=== PATIENT | female | born 2000 | race Caucasian/White ===

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

== ENCOUNTER 2020-10-18 19:42 | Emergency (ER) | payer OTHER ==
[2020-10-18 21:16] VITALS: TEMP 98.6
[2020-10-18] MEDS ORDERED: SODIUM CHLORIDE 0.9% 1,000 ML IV STA (23:54)
[2020-10-18] MEDS ORDERED: ONDANSETRON 4 MG/2 ML VIAL IVP STA (23:54)
--- NOTE | 2020-10-18 23:57 | ED ---
Nausea/Vomiting/Diarrhea HPI - General Chief complaint: Nausea/Vomiting/Diarrhea Stated complaint: Nausea, SOB, weakness Time Seen by Provider: 10/18/20 23:34 Source: patient, RN notes reviewed Mode of arrival: ambulatory Limitations: no limitations - History of Present Illness Initial comments: Patient is a 20-year-old female that presents the emergency department complaining of abdominal pain with nausea vomiting and diarrhea. She notes that she tried going to bed early but was awoken by lower abdominal pain around 7:00 this evening. She noted that she became nauseous and vomited approximately 3 times. She stated that after this she's had several bouts of diarrhea and had an accident while waiting in the emergency room waiting room. She was in no apparent distress or pain while sitting up in bed during the exam interview. She noted that her pain was about a 3 out of 10 and that she did not need any medication at this point. She stated that the ideal eating made her more nauseous as she was about to attempt eat some crackers. She did note that she recently got a steroid shot and a prescription for Z-Ignacio and prednisone for primary care. She denied any chest pain shortness of breath headache constipation fever fatigue chills. - Related Data Home Medications Medication Instructions Recorded Confirmed Adapalene/Benzoyl Peroxide [Epiduo 1 applic TOPICAL DAILY 07/07/16 03/31/19 0.1-2.5% Gel] Atomoxetine HCl [Strattera] 40 mg PO QAM 07/07/16 03/31/19 Clindamycin Gel [Cleocin-T Gel] 1 applic TOPICAL DAILY 07/07/16 03/31/19 Glytone Acne [place] 1 spray TOPICAL DAILY 07/07/16 03/31/19 Loratadine [Claritin] 10 mg PO QAM 07/07/16 03/31/19 Metaxalone [Metaxall] 800 mg PO DAILY PRN 07/07/16 03/31/19 Montelukast [Singulair] 10 mg PO HS 07/07/16 03/31/19 Plexion Wash 1 applic TOPICAL DAILY 07/07/16 03/31/19 cloNIDine HCL [Catapres] 0.1 mg PO HS 07/07/16 03/31/19 Albuterol Inhaler (Mhu) [Ventolin 2 puff INHALATION RT-Q6H PRN 03/31/19 03/31/19 Hfa Inhaler] Blisovi Fe 1 tab PO DAILY 03/31/19 03/31/19 Fluticasone Nasal [place] [Flonase 1 spray EA NOSTRIL DAILY PRN 03/31/19 03/31/19 Nasal [place]] Fluticasone/Vilanterol [Breo 1 puff INHALATION RT-DAILY 03/31/19 03/31/19 Ellipta 100-25 Mcg Inhaler] Previous Rx's Medication Instructions Recorded Ondansetron Odt [Zofran ODT] 4 mg PO Q8HR PRN #10 tab 08/23/19 Allergies Allergy/AdvReac Type Severity Reaction Status Date / Time Penicillins Allergy Unknown Verified 10/18/20 21:16 Childhood Review of Systems ROS Statement: Those systems with pertinent positive or pertinent negative responses have been documented in the HPI. ROS Other: All systems not noted in ROS Statement are negative. Past Medical History Past Medical History: No Reported History Additional Past Medical History / Comment(s): SESONAL ALLERGIES, cerebral atoxia at History of Any Multi-Drug Resistant Organisms: None Reported Past Surgical History: No Surgical Hx Reported Past Psychological History: ADD/ADHD, Anxiety Smoking Status: Never smoker Past Alcohol Use History: Occasional Past Drug Use History: Marijuana General Exam Limitations: no limitations General appearance: alert, in no apparent distress Head exam: Present: atraumatic, normocephalic, normal inspection Eye exam: Present: normal appearance, PERRL, EOMI. Absent: scleral icterus, con junctival injection, periorbital swelling Neck exam: Present: normal inspection. Absent: tenderness, meningismus, lymphadenopathy Respiratory exam: Present: normal lung sounds bilaterally. Absent: respiratory distress, wheezes, rales, rhonchi, stridor Cardiovascular Exam: Present: regular rate, normal rhythm, normal heart sounds. Absent: systolic murmur, diastolic murmur, rubs, gallop, clicks GI/Abdominal exam: Present: soft, tenderness (Left lower quadrant), normal bowel sounds. Absent: distended, guarding, rebound, rigid Extremities exam: Present: normal inspection, full ROM, normal capillary refill. Absent: tenderness, pedal edema, joint swelling, calf tenderness Neurological exam: Present: alert, oriented X3, CN II-XII intact Psychiatric exam: Present: normal affect, normal mood Skin exam: Present: warm, dry, intact, normal color. Absent: rash Course Vital Signs 10/18/20 21:12 Temperature 98.6 F Pulse Rate 106 H Respiratory 20 Rate Blood Pressure 116/69 O2 Sat by Pulse 99 Oximetry Medical Decision Making - Medical Decision Making 20-year-old female with acute onset of nausea vomiting and diarrhea since 7 PM on 10/18/2020. Labs, KUB, chest x-ray, 1 L normal saline, 4 mg of Zofran ordered. Labs unremarkable. KUB showed moderate stool, possible ileus or enteritis. Case discussed with Dr. Grant, , patient can discharge home with follow-up to primary care. - Lab Data Result diagrams: 10/19/20 00:17 10/19/20 00:17 Lab Results 10/19/20 10/19/20 10/19/20 Range/Units 00:17 00:17 00:31 WBC 3.8 L (4.0-11.0) k/uL RBC 5.17 (3.80-5.40) m/uL Hgb 16.4 H (11.4-16.0) gm/dL Hct 46.7 H (34.0-46.0) % MCV 90.4 (80.0-100.0) fL MCH 31.7 (25.0-35.0) pg MCHC 35.1 (31.0-37.0) g/dL RDW 11.4 L (11.5-15.5) % Plt Count 221 (150-450) k/uL MPV 7.5 Neutrophils % 83 % Lymphocytes % 13 % Monocytes % 2 % Eosinophils % 1 % Basophils % 0 % Neutrophils # 3.1 (1.3-7.7) k/uL Lymphocytes # 0.5 L (1.0-4.8) k/uL Monocytes # 0.1 (0-1.0) k/uL Eosinophils # 0.0 (0-0.7) k/uL Basophils # 0.0 (0-0.2) k/uL Sodium 138 (137-145) mmol/L Potassium 5.0 (3.5-5.1) mmol/L Chloride 104 (98-107) mmol/L Carbon Dioxide 22 (22-30) mmol/L Anion Gap 12 mmol/L BUN 12 (7-17) mg/dL Creatinine 0.64 (0.52-1.04) mg/dL Est GFR (CKD-EPI)AfAm >90 (>60 ml/min/1.73 sqM) Est GFR (CKD-EPI)NonAf >90 (>60 ml/min/1.73 sqM) Glucose 121 H (74-99) mg/dL Calcium 9.8 (8.4-10.2) mg/dL Total Bilirubin 0.3 (0.2-1.3) mg/dL AST 25 (14-36) U/L ALT 21 (4-34) U/L Alkaline Phosphatase 68 (38-126) U/L Total Protein 8.3 H (6.3-8.2) g/dL Albumin 5.2 H (3.5-5.0) g/dL Urine Color Yellow Urine Appearance Clear (Clear) Urine pH 5.5 (5.0-8.0) Ur Specific [place] 1.031 (1.001-1.035) Urine Protein Trace H (Negative) Urine Glucose (UA) Negative (Negative) Urine Ketones Trace H (Negative) Urine Blood Negative (Negative) Urine Nitrite Negative (Negative) Urine Bilirubin Negative (Negative) Urine Urobilinogen <2.0 (<2.0) mg/dL Ur Leukocyte Esterase Negative (Negative) Urine HCG, Qual (Not Detectd) 10/19/20 Range/Units 00:31 WBC (4.0-11.0) k/uL RBC (3.80-5.40) m/uL Hgb (11.4-16.0) gm/dL Hct (34.0-46.0) % MCV (80.0-100.0) fL MCH (25.0-35.0) pg MCHC (31.0-37.0) g/dL RDW (11.5-15.5) % Plt Count (150-450) k/uL MPV Neutrophils % % Lymphocytes % % Monocytes % % Eosinophils % % Basophils % % Neutrophils # (1.3-7.7) k/uL Lymphocytes # (1.0-4.8) k/uL Monocytes # (0-1.0) k/uL Eosinophils # (0-0.7) k/uL Basophils # (0-0.2) k/uL Sodium (137-145) mmol/L Potassium (3.5-5.1) mmol/L Chloride (98-107) mmol/L Carbon Dioxide (22-30) mmol/L Anion Gap mmol/L BUN (7-17) mg/dL Creatinine (0.52-1.04) mg/dL Est GFR (CKD-EPI)AfAm (>60 ml/min/1.73 sqM) Est GFR (CKD-EPI)NonAf (>60 ml/min/1.73 sqM) Glucose (74-99) mg/dL Calcium (8.4-10.2) mg/dL Total Bilirubin (0.2-1.3) mg/dL AST (14-36) U/L ALT (4-34) U/L Alkaline Phosphatase (38-126) U/L Total Protein (6.3-8.2) g/dL Albumin (3.5-5.0) g/dL Urine Color Urine Appearance (Clear) Urine pH (5.0-8.0) Ur Specific [place] (1.001-1.035) Urine Protein (Negative) Urine Glucose (UA) (Negative) Urine Ketones (Negative) Urine Blood (Negative) Urine Nitrite (Negative) Urine Bilirubin (Negative) Urine Urobilinogen (<2.0) mg/dL Ur Leukocyte Esterase (Negative) Urine HCG, Qual Not Detected (Not Detectd) - Radiology Data Radiology results: report reviewed, image reviewed KUB: Several air-fluid levels, can be seen with enteritis or ileus. Chest x-ray: Mild. Bronchial thickening. No consolidation. Disposition Clinical Impression: Enteritis Disposition: HOME SELF-CARE Condition: Stable Instructions (If sedation given, give patient instructions): Acute Nausea and Vomiting (ED), Acute Diarrhea (ED) Additional Instructions: Please return to the Emergency Department if symptoms worsen or any other concerns. Increase fiber in diet. Follow-up with primary care in 2-4 days. Please return if symptoms get worse when he noticed increased abdominal pain nausea vomiting or diarrhea. Increase oral fluids. Is patient prescribed a controlled substance at d/c from ED?: No Referrals: Magaly Last DO [Primary Care Provider] - 1-2 days Time of Disposition: 01:39
[2020-10-19 00:27] LABS: Basophils % (A) 0 %; Eosinophils % (A) 1 %; HCT 46.7 % (34.0-46.0); HGB 16.4 gm/dL (11.4-16.0); Lymphocytes # (A) 0.5 k/uL (1.0-4.8); Lymphocytes % (A) 13 %; MCH 31.7 pg (25.0-35.0); MCHC 35.1 g/dL (31.0-37.0); MCV 90.4 fL (80.0-100.0); Mean Platelet Volume 7.5; Monocytes # (A) 0.1 k/uL (0-1.0); Monocytes % (A) 2 %; Neutrophils # (A) 3.1 k/uL (1.3-7.7); Neutrophils % (A) 83 %; Platelet Count 221 k/uL (150-450); RBC 5.17 m/uL (3.80-5.40); RDW 11.4 % (11.5-15.5); WBC 3.8 k/uL (4.0-11.0)
[2020-10-19 00:39] LABS: ALT 21 U/L (4-34); AST 25 U/L (14-36); African American GFR (CKD) >90 (>60 ml/min/1.73 sqM); Albumin 5.2 g/dL (3.5-5.0); Alkaline Phosphatase 68 U/L (38-126); Anion Gap 12 mmol/L; Blood Urea Nitrogen 12 mg/dL (7-17); Calcium 9.8 mg/dL (8.4-10.2); Carbon Dioxide 22 mmol/L (22-30); Chloride 104 mmol/L (98-107); Glucose 121 mg/dL (74-99); Non-African American GFR(CKD) >90 (>60 ml/min/1.73 sqM); Sodium 138 mmol/L (137-145); Total Bilirubin 0.3 mg/dL (0.2-1.3)
[2020-10-19 00:43] LABS: Appearance,Urine Clear (Clear); Bilirubin,Urine Negative (Negative); Blood,Urine Negative (Negative); Color,Urine Yellow; Glucose,Urine (UA) Negative (Negative); Ketones,Urine Trace (Negative); Leukocyte Esterase,Urine Negative (Negative); Nitrite,Urine Negative (Negative); PH, Urine 5.5 (5.0-8.0); Protein,Urine Trace (Negative); Specific Gravity,Urine 1.031 (1.001-1.035); Urobilinogen,Urine <2.0 mg/dL (<2.0)
[2020-10-19 00:55] LABS: Total Protein 8.3 g/dL (6.3-8.2)
--- NOTE | 2020-10-19 01:15 | XR ---
EXAM: XR Chest, 2 Views CLINICAL HISTORY: ITS.REASON XR Reason: pain TECHNIQUE: Frontal and lateral views of the chest. COMPARISON: No relevant prior studies available. FINDINGS: Lungs: Mild peribronchial thickening. No consolidation. Pleural space: No significant pleural effusion or pneumothorax. Heart: Unremarkable. Mediastinum: Unremarkable. Bones/joints: No acute fracture. IMPRESSION: Mild peribronchial thickening. No consolidation.
--- NOTE | 2020-10-19 01:17 | XR ---
EXAM: XR Abdomen, 1 View CLINICAL HISTORY: ITS.REASON XR Reason: pain TECHNIQUE: Frontal supine view of the abdomen/pelvis. COMPARISON: 07/07/16. FINDINGS: Gastrointestinal tract: Several air-fluid levels, can be seen with enteritis or ileus. Mild-moderate stool. Bones/joints: No acute fracture. IMPRESSION: Several air-fluid levels, can be seen with enteritis or ileus.
[2020-10-19 01:52] VITALS: BP 104/69; PULSE 78; RESP 18
== END 2020-10-19 01:51 | disposition home or self-care (01) ==
LOC: EC 19:42
DX: K52.9 Noninfective gastroenteritis and colitis, unspecified (principal); F41.9 Anxiety disorder, unspecified; Z88.0 Allergy status to penicillin
CPT/HCPCS: 36415; 80053; 85025; 81003; 81025; 71046; 74018; 99285; 96374; 96361 ×2; J2405

== ENCOUNTER 2021-03-04 00:48 | Emergency (ER) | payer OTHER ==
[2021-03-04 00:57] VITALS: TEMP 98.7
[2021-03-04] MEDS ORDERED: ONDANSETRON 4 MG/2 ML VIAL IVP STA (01:17)
[2021-03-04] MEDS ORDERED: SODIUM CHLORIDE 0.9% 1,000 ML IV ONE (01:17)
--- NOTE | 2021-03-04 01:48 | ED ---
Nausea/Vomiting/Diarrhea HPI - General Chief complaint: Nausea/Vomiting/Diarrhea Stated complaint: Vomiting Time Seen by Provider: 03/04/21 00:57 Source: patient, family Mode of arrival: ambulatory Limitations: no limitations - History of Present Illness MD complaint: nausea, vomiting Onset/Timin -: days(s) Description of Vomiting: food contents Location: [facility] Radiation: none Severity: moderate Quality: stabbing Consistency: intermittent Improves with: none Worsens with: none Associated Symptoms: nausea/vomiting - Related Data Home Medications Medication Instructions Recorded Confirmed Adapalene/Benzoyl Peroxide [Epiduo 1 applic TOPICAL DAILY 07/07/16 03/31/19 0.1-2.5% Gel] Atomoxetine HCl [Strattera] 40 mg PO QAM 07/07/16 03/31/19 Clindamycin Gel [Cleocin-T Gel] 1 applic TOPICAL DAILY 07/07/16 03/31/19 Glytone Acne [place] 1 spray TOPICAL DAILY 07/07/16 03/31/19 Loratadine [Claritin] 10 mg PO QAM 07/07/16 03/31/19 Metaxalone [Metaxall] 800 mg PO DAILY PRN 07/07/16 03/31/19 Montelukast [Singulair] 10 mg PO HS 07/07/16 03/31/19 Plexion Wash 1 applic TOPICAL DAILY 07/07/16 03/31/19 cloNIDine HCL [Catapres] 0.1 mg PO HS 07/07/16 03/31/19 Albuterol Inhaler (Mhu) [Ventolin 2 puff INHALATION RT-Q6H PRN 03/31/19 03/31/19 Hfa Inhaler] Blisovi Fe 1 tab PO DAILY 03/31/19 03/31/19 Fluticasone Nasal [place] [Flonase 1 spray EA NOSTRIL DAILY PRN 03/31/19 03/31/19 Nasal [place]] Fluticasone/Vilanterol [Breo 1 puff INHALATION RT-DAILY 03/31/19 03/31/19 Ellipta 100-25 Mcg Inhaler] Previous Rx's Medication Instructions Recorded Ondansetron Odt [Zofran ODT] 4 mg PO Q8HR PRN #10 tab 08/23/19 Allergies Allergy/AdvReac Type Severity Reaction Status Date / Time Penicillins Allergy Unknown Verified 03/04/21 00:56 Childhood Review of Systems ROS Statement: Those systems with pertinent positive or pertinent negative responses have been documented in the HPI. ROS Other: All systems not noted in ROS Statement are negative. Constitutional: Denies: fever, chills Respiratory: Denies: cough, dyspnea Cardiovascular: Denies: chest pain, palpitations Gastrointestinal: Reports: abdominal pain, nausea, vomiting, diarrhea. Denies: constipation, melena, hematochezia Genitourinary: Denies: dysuria, frequency, hematuria, abnormal menses Musculoskeletal: Denies: back pain Skin: Denies: rash Neurological: Denies: headache, weakness Past Medical History Past Medical History: Asthma Additional Past Medical History / Comment(s): SESONAL ALLERGIES, cerebral atoxia at History of Any Multi-Drug Resistant Organisms: None Reported Past Surgical History: No Surgical Hx Reported Past Psychological History: ADD/ADHD, Anxiety Smoking Status: Never smoker Past Alcohol Use History: Occasional Past Drug Use History: Marijuana General Exam Limitations: no limitations General appearance: alert, in no apparent distress Head exam: Present: atraumatic, normocephalic Eye exam: Present: normal appearance. Absent: scleral icterus, conjunctival injection Respiratory exam: Present: normal lung sounds bilaterally. Absent: respiratory distress, wheezes, rales, rhonchi, stridor Cardiovascular Exam: Present: regular rate, normal rhythm, normal heart sounds. Absent: systolic murmur, diastolic murmur, rubs, gallop GI/Abdominal exam: Present: soft, normal bowel sounds. Absent: distended, tenderness, guarding, rebound, rigid, mass, pulsatile mass, hernia Extremities exam: Present: normal inspection, normal capillary refill Back exam: Present: normal inspection. Absent: CVA tenderness (R), CVA tenderness (L) Neurological exam: Present: alert Skin exam: Present: warm, dry, intact, normal color. Absent: rash Course Vital Signs 03/04/21 03/04/21 00:52 01:56 Temperature 98.7 F Pulse Rate 106 H 98 Respiratory 20 18 Rate Blood Pressure 89/50 106/72 O2 Sat by Pulse 97 98 Oximetry Medical Decision Making - Lab Data Result diagrams: 03/04/21 01:36 03/04/21 01:36 Lab Results 03/04/21 03/04/21 03/04/21 Range/Units 01:36 01:36 01:36 WBC 5.9 (4.0-11.0) k/uL RBC 5.30 (3.80-5.40) m/uL Hgb 16.7 H (11.4-16.0) gm/dL Hct 47.6 H (34.0-46.0) % MCV 89.9 (80.0-100.0) fL MCH 31.5 (25.0-35.0) pg MCHC 35.0 (31.0-37.0) g/dL RDW 11.7 (11.5-15.5) % Plt Count 219 (150-450) k/uL MPV 7.6 Neutrophils % 55 % Lymphocytes % 32 % Monocytes % 6 % Eosinophils % 2 % Basophils % 1 % Neutrophils # 3.3 (1.3-7.7) k/uL Lymphocytes # 1.9 (1.0-4.8) k/uL Monocytes # 0.4 (0-1.0) k/uL Eosinophils # 0.1 (0-0.7) k/uL Basophils # 0.1 (0-0.2) k/uL Sodium (137-145) mmol/L Potassium (3.5-5.1) mmol/L Chloride (98-107) mmol/L Carbon Dioxide (22-30) mmol/L Anion Gap mmol/L BUN (7-17) mg/dL Creatinine (0.52-1.04) mg/dL Est GFR (CKD-EPI)AfAm (>60 ml/min/1.73 sqM) Est GFR (CKD-EPI)NonAf (>60 ml/min/1.73 sqM) Glucose (74-99) mg/dL Calcium (8.4-10.2) mg/dL Urine Color Yellow Urine Appearance Clear (Clear) Urine pH 5.5 (5.0-8.0) Ur Specific [place] 1.030 (1.001-1.035) Urine Protein Trace H (Negative) Urine Glucose (UA) Negative (Negative) Urine Ketones Negative (Negative) Urine Blood Negative (Negative) Urine Nitrite Negative (Negative) Urine Bilirubin Negative (Negative) Urine Urobilinogen <2.0 (<2.0) mg/dL Ur Leukocyte Esterase Negative (Negative) Urine HCG, Qual Not Detected (Not Detectd) 03/04/21 Range/Units 01:36 WBC (4.0-11.0) k/uL RBC (3.80-5.40) m/uL Hgb (11.4-16.0) gm/dL Hct (34.0-46.0) % MCV (80.0-100.0) fL MCH (25.0-35.0) pg MCHC (31.0-37.0) g/dL RDW (11.5-15.5) % Plt Count (150-450) k/uL MPV Neutrophils % % Lymphocytes % % Monocytes % % Eosinophils % % Basophils % % Neutrophils # (1.3-7.7) k/uL Lymphocytes # (1.0-4.8) k/uL Monocytes # (0-1.0) k/uL Eosinophils # (0-0.7) k/uL Basophils # (0-0.2) k/uL Sodium 139 (137-145) mmol/L Potassium 4.1 (3.5-5.1) mmol/L Chloride 106 (98-107) mmol/L Carbon Dioxide 18 L (22-30) mmol/L Anion Gap 15 mmol/L BUN 16 (7-17) mg/dL Creatinine 0.59 (0.52-1.04) mg/dL Est GFR (CKD-EPI)AfAm >90 (>60 ml/min/1.73 sqM) Est GFR (CKD-EPI)NonAf >90 (>60 ml/min/1.73 sqM) Glucose 100 H (74-99) mg/dL Calcium 9.4 (8.4-10.2) mg/dL Urine Color Urine Appearance (Clear) Urine pH (5.0-8.0) Ur Specific [place] (1.001-1.035) Urine Protein (Negative) Urine Glucose (UA) (Negative) Urine Ketones (Negative) Urine Blood (Negative) Urine Nitrite (Negative) Urine Bilirubin (Negative) Urine Urobilinogen (<2.0) mg/dL Ur Leukocyte Esterase (Negative) Urine HCG, Qual (Not Detectd) Disposition Clinical Impression: Gastroenteritis Disposition: HOME SELF-CARE Condition: Good Instructions (If sedation given, give patient instructions): Gastroenteritis (ED) Is patient prescribed a controlled substance at d/c from ED?: No Referrals: ShalaMagaly baldwin DO [Primary Care Provider] - 1-2 days
[2021-03-04 01:49] LABS: Basophils # (A) 0.1 k/uL (0-0.2); Basophils % (A) 1 %; Eosinophils # (A) 0.1 k/uL (0-0.7); Eosinophils % (A) 2 %; HCT 47.6 % (34.0-46.0); HGB 16.7 gm/dL (11.4-16.0); Lymphocytes # (A) 1.9 k/uL (1.0-4.8); Lymphocytes % (A) 32 %; MCH 31.5 pg (25.0-35.0); MCV 89.9 fL (80.0-100.0); Mean Platelet Volume 7.6; Monocytes # (A) 0.4 k/uL (0-1.0); Monocytes % (A) 6 %; Neutrophils # (A) 3.3 k/uL (1.3-7.7); Neutrophils % (A) 55 %; Platelet Count 219 k/uL (150-450); RDW 11.7 % (11.5-15.5); WBC 5.9 k/uL (4.0-11.0)
[2021-03-04] MEDS ORDERED: DICYCLOMINE 20 MG TAB PO STA (02:19)
[2021-03-04 02:23] LABS: Appearance,Urine Clear (Clear); Bilirubin,Urine Negative (Negative); Blood,Urine Negative (Negative); Color,Urine Yellow; Glucose,Urine (UA) Negative (Negative); Ketones,Urine Negative (Negative); Leukocyte Esterase,Urine Negative (Negative); Nitrite,Urine Negative (Negative); PH, Urine 5.5 (5.0-8.0); Protein,Urine Trace (Negative); Urobilinogen,Urine <2.0 mg/dL (<2.0)
[2021-03-04 02:25] LABS: African American GFR (CKD) >90 (>60 ml/min/1.73 sqM); Anion Gap 15 mmol/L; Blood Urea Nitrogen 16 mg/dL (7-17); Calcium 9.4 mg/dL (8.4-10.2); Carbon Dioxide 18 mmol/L (22-30); Chloride 106 mmol/L (98-107); Glucose 100 mg/dL (74-99); Non-African American GFR(CKD) >90 (>60 ml/min/1.73 sqM); Sodium 139 mmol/L (137-145)
[2021-03-04 02:31] LABS: Potassium 4.1 mmol/L (3.5-5.1)
[2021-03-04 02:44] VITALS: RESP 18
[2021-03-04 03:02] VITALS: BP 110/79; PULSE 101
== END 2021-03-04 03:02 | disposition home or self-care (01) ==
LOC: EC 00:48
DX: K52.9 Noninfective gastroenteritis and colitis, unspecified (principal); J45.909 Unspecified asthma, uncomplicated; F90.9 Attention-deficit hyperactivity disorder, unspecified type; F41.9 Anxiety disorder, unspecified; F12.90 Cannabis use, unspecified, uncomplicated; Z88.0 Allergy status to penicillin
CPT/HCPCS: 99284; 96374; 36415; 80048; 85025; 81003; 81025; J2405

== ENCOUNTER 2021-05-13 00:02 | Emergency (ER) | payer OTHER ==
[2021-05-13 00:55] LABS: Appearance,Urine Clear (Clear); Bilirubin,Urine Negative (Negative); Blood,Urine Negative (Negative); Color,Urine Yellow; Glucose,Urine (UA) Negative (Negative); Ketones,Urine Negative (Negative); Leukocyte Esterase,Urine Negative (Negative); Nitrite,Urine Negative (Negative); PH, Urine 5.5 (5.0-8.0); Protein,Urine Negative (Negative); Specific Gravity,Urine 1.026 (1.001-1.035); Urobilinogen,Urine <2.0 mg/dL (<2.0)
[2021-05-13] MEDS ORDERED: KETOROLAC 15 MG/ML 1 ML VIAL IVP STA (01:47)
[2021-05-13 02:18] LABS: Basophils # (A) 0.1 k/uL (0-0.2); Basophils % (A) 0 %; Eosinophils # (A) 0.3 k/uL (0-0.7); Eosinophils % (A) 2 %; HCT 46.5 % (34.0-46.0); HGB 16.3 gm/dL (11.4-16.0); Lymphocytes % (A) 14 %; MCH 31.2 pg (25.0-35.0); MCV 89.2 fL (80.0-100.0); Mean Platelet Volume 7.5; Monocytes # (A) 0.5 k/uL (0-1.0); Monocytes % (A) 3 %; Neutrophils # (A) 11.4 k/uL (1.3-7.7); Neutrophils % (A) 80 %; Platelet Count 300 k/uL (150-450); RBC 5.21 m/uL (3.80-5.40); RDW 12.5 % (11.5-15.5); WBC 14.3 k/uL (3.8-10.6)
[2021-05-13 02:28] LABS: ALT 19 U/L (4-34); AST 42 U/L (14-36); African American GFR (CKD) >90 (>60 ml/min/1.73 sqM); Albumin 4.7 g/dL (3.5-5.0); Alkaline Phosphatase 48 U/L (38-126); Amylase 49 U/L (30-110); Anion Gap 11 mmol/L; Blood Urea Nitrogen 14 mg/dL (7-17); Calcium 9.6 mg/dL (8.4-10.2); Carbon Dioxide 20 mmol/L (22-30); Chloride 105 mmol/L (98-107); Glucose 107 mg/dL (74-99); Lipase 47 U/L (23-300); Non-African American GFR(CKD) >90 (>60 ml/min/1.73 sqM); Sodium 136 mmol/L (137-145); Total Bilirubin 0.7 mg/dL (0.2-1.3); Total Protein 8.2 g/dL (6.3-8.2)
[2021-05-13 02:37] LABS: Potassium 5.5 mmol/L (3.5-5.1)
--- NOTE | 2021-05-13 02:53 | XR ---
EXAMINATION TYPE: XR KUB DATE OF EXAM: 05/13/2021 COMPARISON: October 19, 2020 HISTORY: Abdominal pain TECHNIQUE: 3 views Upright FINDINGS: There is no sign of intestinal obstruction or pneumoperitoneum. Fecal pattern is normal. Th ere is no evidence of a mass. There are no pathologic calcifications over the kidneys. IMPRESSION: Nonacute abdomen. No adverse change.
--- NOTE | 2021-05-13 03:02 | ED ---
Abdominal Pain HPI - General Chief Complaint: Abdominal Pain Stated Complaint: Abdominal pain Time Seen by Provider: 05/13/21 01:46 Source: patient, RN notes reviewed Mode of arrival: ambulatory Limitations: no limitations - History of Present Illness Initial Comments: 21-year-old female presenting to emergency department complaining of lower abdominal pain. She notes that been going on for the past several weeks worse when she lays down. She denied any aggravating factors but notes that walking around makes it feel better. She denied any abdominal history. She also she follows up with [facility] primary care. She was otherwise a well-appearing 2 1-year-old female in no apparent distress or pain. She also tells process 7 out of 10 with no relief. She denied any chest pain shortness breath headache nausea vomiting diarrhea constipation fever fatigue chills. - Related Data Home Medications Medication Instructions Recorded Confirmed Adapalene/Benzoyl Peroxide [Epiduo 1 applic TOPICAL DAILY 07/07/16 03/31/19 0.1-2.5% Gel] Atomoxetine HCl [Strattera] 40 mg PO QAM 07/07/16 03/31/19 Clindamycin Gel [Cleocin-T Gel] 1 applic TOPICAL DAILY 07/07/16 03/31/19 Glytone Acne [place] 1 spray TOPICAL DAILY 07/07/16 03/31/19 Loratadine [Claritin] 10 mg PO QAM 07/07/16 03/31/19 Metaxalone [Metaxall] 800 mg PO DAILY PRN 07/07/16 03/31/19 Montelukast [Singulair] 10 mg PO HS 07/07/16 03/31/19 Plexion Wash 1 applic TOPICAL DAILY 07/07/16 03/31/19 cloNIDine HCL [Catapres] 0.1 mg PO HS 07/07/16 03/31/19 Albuterol Inhaler (Mhu) [Ventolin 2 puff INHALATION RT-Q6H PRN 03/31/19 03/31/19 Hfa Inhaler] Blisovi Fe 1 tab PO DAILY 03/31/19 03/31/19 Fluticasone Nasal [place] [Flonase 1 spray EA NOSTRIL DAILY PRN 03/31/19 03/31/19 Nasal [place]] Fluticasone/Vilanterol [Breo 1 puff INHALATION RT-DAILY 03/31/19 03/31/19 Ellipta 100-25 Mcg Inhaler] Previous Rx's Medication Instructions Recorded Ondansetron Odt [Zofran ODT] 4 mg PO Q8HR PRN #10 tab 08/23/19 Allergies Allergy/AdvReac Type Severity Reaction Status Date / Time Penicillins Allergy Unknown Verified 05/13/21 00:29 Childhood Review of Systems ROS Statement: Those systems with pertinent positive or pertinent negative responses have been documented in the HPI. ROS Other: All systems not noted in ROS Statement are negative. Past Medical History Past Medical History: Asthma Additional Past Medical History / Comment(s): SESONAL ALLERGIES, cerebral atoxia at History of Any Multi-Drug Resistant Organisms: None Reported Past Surgical History: No Surgical Hx Reported Additional Past Surgical History / Comment(s): wisdom teeth removal Past Psychological History: ADD/ADHD, Anxiety Smoking Status: Never smoker Past Alcohol Use History: Occasional Past Drug Use History: Marijuana General Exam Limitations: no limitations General appearance: alert, in no apparent distress Head exam: Present: atraumatic, normocephalic, normal inspection Eye exam: Present: normal appearance, PERRL, EOMI. Absent: scleral icterus, conjunctival injection, periorbital swelling ENT exam: Present: normal exam, mucous membranes moist Neck exam: Present: normal inspection Respiratory exam: Present: normal lung sounds bilaterally. Absent: respiratory distress, wheezes, rales, rhonchi, stridor Cardiovascular Exam: Present: regular rate, normal rhythm, normal heart sounds. Absent: systolic murmur, diastolic murmur, rubs, gallop, clicks GI/Abdominal exam: Present: soft, normal bowel sounds. Absent: distended, tenderness, guarding, rebound, rigid Extremities exam: Present: normal inspection, full ROM, normal capillary refill. Absent: tenderness, pedal edema, joint swelling, calf tenderness Neurological exam: Present: alert, oriented X3 Psychiatric exam: Present: normal affect, normal mood Skin exam: Present: warm, dry, intact, normal color. Absent: rash Course Vital Signs 05/13/21 00:22 Temperature 98.1 F Pulse Rate 91 Respiratory 18 Rate Blood Pressure 127/84 O2 Sat by Pulse 99 Oximetry Medical Decision Making - Medical Decision Making 21-year-old female complaining of lower abdominal pain. Labs, KUB, 15 mg of Toradol ordered. Labs: White blood cells 14.3, hemoglobin 16.3, hematocrit 46.5, CMP shows dehydration. Urinalysis negative, negative hCG. KUB negative for any acute process. Patient is mildly dehydrated but is tolerating orals. Patient is agreeable with discharge home with pain medication follow-up to primary care and GI. Case discussed with Dr. Grant, patient discharge home. - Lab Data Result diagrams: 05/13/21 01:49 05/13/21 01:49 Lab Results 05/13/21 05/13/21 05/13/21 Range/Units 00:34 01:49 01:49 WBC 14.3 H (3.8-10.6) k/uL RBC 5.21 (3.80-5.40) m/uL Hgb 16.3 H (11.4-16.0) gm/dL Hct 46.5 H (34.0-46.0) % MCV 89.2 (80.0-100.0) fL MCH 31.2 (25.0-35.0) pg MCHC 35.0 (31.0-37.0) g/dL RDW 12.5 (11.5-15.5) % Plt Count 300 (150-450) k/uL MPV 7.5 Neutrophils % 80 % Lymphocytes % 14 % Monocytes % 3 % Eosinophils % 2 % Basophils % 0 % Neutrophils # 11.4 H (1.3-7.7) k/uL Lymphocytes # 2.0 (1.0-4.8) k/uL Monocytes # 0.5 (0-1.0) k/uL Eosinophils # 0.3 (0-0.7) k/uL Basophils # 0.1 (0-0.2) k/uL Sodium (137-145) mmol/L Potassium (3.5-5.1) mmol/L Chloride (98-107) mmol/L Carbon Dioxide (22-30) mmol/L Anion Gap mmol/L BUN (7-17) mg/dL Creatinine (0.52-1.04) mg/dL Est GFR (CKD-EPI)AfAm (>60 ml/min/1.73 sqM) Est GFR (CKD-EPI)NonAf (>60 ml/min/1.73 sqM) Glucose (74-99) mg/dL Calcium (8.4-10.2) mg/dL Total Bilirubin (0.2-1.3) mg/dL AST (14-36) U/L ALT (4-34) U/L Alkaline Phosphatase (38-126) U/L Total Protein (6.3-8.2) g/dL Albumin (3.5-5.0) g/dL Amylase (30-110) U/L Lipase (23-300) U/L Urine Color Yellow Urine Appearance Clear (Clear) Urine pH 5.5 (5.0-8.0) Ur Specific [place] 1.026 (1.001-1.035) Urine Protein Negative (Negative) Urine Glucose (UA) Negative (Negative) Urine Ketones Negative (Negative) Urine Blood Negative (Negative) Urine Nitrite Negative (Negative) Urine Bilirubin Negative (Negative) Urine Urobilinogen <2.0 (<2.0) mg/dL Ur Leukocyte Esterase Negative (Negative) Urine HCG, Qual Not Detected (Not Detectd) 05/13/21 Range/Units 01:49 WBC (3.8-10.6) k/uL RBC (3.80-5.40) m/uL Hgb (11.4-16.0) gm/dL Hct (34.0-46.0) % MCV (80.0-100.0) fL MCH (25.0-35.0) pg MCHC (31.0-37.0) g/dL RDW (11.5-15.5) % Plt Count (150-450) k/uL MPV Neutrophils % % Lymphocytes % % Monocytes % % Eosinophils % % Basophils % % Neutrophils # (1.3-7.7) k/uL Lymphocytes # (1.0-4.8) k/uL Monocytes # (0-1.0) k/uL Eosinophils # (0-0.7) k/uL Basophils # (0-0.2) k/uL Sodium 136 L (137-145) mmol/L Potassium 5.5 H (3.5-5.1) mmol/L Chloride 105 (98-107) mmol/L Carbon Dioxide 20 L (22-30) mmol/L Anion Gap 11 mmol/L BUN 14 (7-17) mg/dL Creatinine 0.62 (0.52-1.04) mg/dL Est GFR (CKD-EPI)AfAm >90 (>60 ml/min/1.73 sqM) Est GFR (CKD-EPI)NonAf >90 (>60 ml/min/1.73 sqM) Glucose 107 H (74-99) mg/dL Calcium 9.6 (8.4-10.2) mg/dL Total Bilirubin 0.7 (0.2-1.3) mg/dL AST 42 H (14-36) U/L ALT 19 (4-34) U/L Alkaline Phosphatase 48 (38-126) U/L Total Protein 8.2 (6.3-8.2) g/dL Albumin 4.7 (3.5-5.0) g/dL Amylase 49 (30-110) U/L Lipase 47 (23-300) U/L Urine Color Urine Appearance (Clear) Urine pH (5.0-8.0) Ur Specific [place] (1.001-1.035) Urine Protein (Negative) Urine Glucose (UA) (Negative) Urine Ketones (Negative) Urine Blood (Negative) Urine Nitrite (Negative) Urine Bilirubin (Negative) Urine Urobilinogen (<2.0) mg/dL Ur Leukocyte Esterase (Negative) Urine HCG, Qual (Not Detectd) - Radiology Data Radiology results: report reviewed, image reviewed KUB: Nonacute abdomen. Disposition Clinical Impression: Abdominal pain, Dehydration, Leukocytosis Disposition: HOME SELF-CARE Condition: Stable Instructions (If sedation given, give patient instructions): Abdominal Pain (ED) Additional Instructions: Please return to the Emergency Department if symptoms worsen or any other concerns. Follow-up with primary care 1-2 days. Take Tylenol and/or Motrin as needed for pain. Increase oral fluids. Is patient prescribed a controlled substance at d/c from ED?: No Referrals: Magaly Last DO [Primary Care Provider] - 1-2 days Nena Rai MD [STAFF PHYSICIAN] - 1-2 days Time of Disposition: 03:02
[2021-05-13 03:07] VITALS: BP 127/67; PULSE 76; RESP 22; TEMP 97.7
== END 2021-05-13 03:11 | disposition home or self-care (01) ==
LOC: EC 00:02
DX: R10.30 Lower abdominal pain, unspecified (principal); E86.0 Dehydration; D72.829 Elevated white blood cell count, unspecified; J45.909 Unspecified asthma, uncomplicated; F41.9 Anxiety disorder, unspecified; F12.90 Cannabis use, unspecified, uncomplicated; Z79.51 Long term (current) use of inhaled steroids; Z79.899 Other long term (current) drug therapy; Z88.0 Allergy status to penicillin
CPT/HCPCS: 36415; 80053; 82150; 83690; 85025; 81003; 81025; 74018; 99284; 96374; J1885

== ENCOUNTER → 2021-11-01 | Outpatient (CLI) | payer OTHER ==
[2021-11-01 18:27] LABS: HCT 44.8 % (37.2-46.3); HGB 14.9 g/dL (12.0-15.0); MCH 30.3 pg (27.0-32.0); MCHC 33.3 g/dL (32.0-37.0); MCV 91.2 fL (80.0-97.0); Mean Platelet Volume 10.3 fL (9.5-12.2); NRBC Per 100 WBC 0 /100 WBCS (0.0-0.0); Platelet Count 266 X 10*3/uL (140-440); RBC 4.91 X 10*6/uL (4.10-5.20); RDW 11.8 % (11.5-14.5); WBC 8.55 X 10*3/uL (4.50-10.00)
[2021-11-01 18:37] LABS: African American GFR (CKD) 132.5 (60.0-200.0); Albumin 4.5 g/dL (3.8-4.9); Albumin/Globulin Ratio 1.69 (1.60-3.17); Anion Gap 12.7 mmol/L (10.00-18.00); BUN/Creat Ratio 13.77 Ratio (12.00-20.00); Blood Urea Nitrogen 10.3 mg/dL (9.0-27.0); Calcium 9.4 mg/dL (8.7-10.3); Carbon Dioxide 22.2 mmol/L (20.0-27.5); Globulin 2.7 g/dL (1.6-3.3); Non-African American GFR(CKD) 114.3 (60.0-200.0); Potassium 4.3 mmol/L (3.5-5.5); Total Bilirubin 0.2 mg/dL (0.30-1.20); Total Protein 7.2 g/dL (6.2-8.2)
[2021-11-01 23:21] LABS: Cryptosporidium Antigen Negative (Negative)
== END | disposition home or self-care (01) ==
LOC: LABWHC1 10:05
PROVIDERS: ATTEND Physician Assistant
DX: R19.7 Diarrhea, unspecified (principal)
CPT/HCPCS: 36415; 80053; 82150; 83690; 85027; 87045; 87046; 87328; 87329

== ENCOUNTER 2021-11-08 22:19 | Emergency (ER) | payer OTHER ==
[2021-11-08 22:31] VITALS: RESP 22
[2021-11-08] MEDS ORDERED: SODIUM CHLORIDE 0.9% 2,000 ML IV STA (22:42)
[2021-11-08] MEDS ORDERED: PROCHLORPERAZINE INJ 10 MG/2 ML VIAL IVP STA (22:46)
[2021-11-08 23:24] LABS: Appearance,Urine Cloudy (Clear); Bilirubin,Urine Negative (Negative); Blood,Urine Moderate (Negative); Calcium Oxalate Crystals,Urine Moderate /hpf; Color,Urine Yellow; Glucose,Urine (UA) Negative (Negative); Hyaline Casts,Urine 28 /lpf (0-2); Ketones,Urine Trace (Negative); Leukocyte Esterase,Urine Small (Negative); Mucus,Urine Many /hpf; Nitrite,Urine Negative (Negative); Protein,Urine 1+ (Negative); RBC,Urine 7 /hpf (0-5); Specific Gravity,Urine 1.031 (1.001-1.035); Squamous Epithelial Cell,Urine 5 /hpf (0-4); WBC,Urine 35 /hpf (0-5)
--- NOTE | 2021-11-08 23:44 | US ---
EXAMINATION TYPE: US transvaginal DATE OF EXAM: 11/08/2021 COMPARISON: NONE CLINICAL HISTORY: left sided torsion. pain TECHNIQUE: Transvaginal (TV). EXAM MEASUREMENTS: Uterus: 5.5 x 2.6 x 3.4 cm Endometrial Stripe: .2 cm Right Ovary: 2.6 x 1.6 x 1.9 cm Left Ovary: 1.5 x 1.2 x 1.7 cm 1. Uterus: Anteverted wnl 2. Endometrium: wnl 3. Right Ovary: wnl Spectral, color and waveform doppler imaging shows good arterial and venous flow within the ovaries ; there is no evidence for ovarian torsion. 5. Bilateral Adnexa: wnl 6. Posterior cul-de-sac: wnl IMPRESSION: Normal uterus and endometrium. No evidence of ovarian torsion. No free fluid. Left ovary appears to b e visualized and appears normal.
[2021-11-08 23:51] LABS: ALT 26 U/L (4-34); African American GFR (CKD) >90 (>60 ml/min/1.73 sqM); Albumin 4.8 g/dL (3.5-5.0); Anion Gap 10 mmol/L; Blood Urea Nitrogen 14 mg/dL (7-17); Calcium 8.9 mg/dL (8.4-10.2); Carbon Dioxide 27 mmol/L (22-30); Chloride 103 mmol/L (98-107); Glucose 98 mg/dL (74-99); Lipase 58 U/L (23-300); Non-African American GFR(CKD) >90 (>60 ml/min/1.73 sqM); Sodium 140 mmol/L (137-145); Total Bilirubin 0.5 mg/dL (0.2-1.3)
[2021-11-08 23:55] LABS: AST 37 U/L (14-36); Alkaline Phosphatase 53 U/L (38-126); Potassium 4.4 mmol/L (3.5-5.1)
[2021-11-08] MEDS ORDERED: PANTOPRAZOLE 40 MG/10 ML VIAL IVP STA (23:57)
[2021-11-09 00:51] LABS: Basophils # (A) 0.1 k/uL (0-0.2); Basophils % (A) 1 %; Eosinophils # (A) 0.1 k/uL (0-0.7); Eosinophils % (A) 1 %; HCT 50.4 % (34.0-46.0); HGB 17.2 gm/dL (11.4-16.0); Lymphocytes # (A) 2.4 k/uL (1.0-4.8); Lymphocytes % (A) 26 %; MCH 31.2 pg (25.0-35.0); MCHC 34.1 g/dL (31.0-37.0); MCV 91.5 fL (80.0-100.0); Mean Platelet Volume 9.3; Monocytes # (A) 0.6 k/uL (0-1.0); Monocytes % (A) 6 %; Neutrophils # (A) 5.9 k/uL (1.3-7.7); Neutrophils % (A) 65 %; Platelet Count 229 k/uL (150-450); RDW 12.1 % (11.5-15.5); WBC 9.1 k/uL (3.8-10.6)
--- NOTE | 2021-11-09 00:59 | CT ---
EXAMINATION TYPE: CT abdomen pelvis w con DATE OF EXAM: 11/09/2021 COMPARISON: None HISTORY: pain CT DLP: 684.6 mGycm Automated exposure control for dose reduction was used. CONTRAST: Performed with IV Contrast, patient injected with 100 mL of Isovue 300. Images obtained from the diaphragm to the floor the pelvis with IV contrast. The lung bases are clear. There is no pleural effusion. Heart size is normal. No pericardial effusion . Liver spleen and stomach pancreas and gallbladder appear intact. The liver is borderline enlarged a nd measures 20.5 cm. the bile ducts are not dilated. There is no adrenal mass. Kidneys show satisfactory contrast opacification. There is no hydronephrosi s. The ureters are not dilated. Delayed images show normal renal excretion. There is no retroperitone al adenopathy. The bladder distends smoothly. Uterus is anteverted. There is very small amount of low -density free fluid in the pelvis. The appendix is in the midline and appears normal. Large bowel pat tern is normal. No evidence of a bowel obstruction. No ascites or free air. No mesenteric edema. The lumbar vertebra have normal alignment. Posterior elements are intact. There is no compression fra cture. Bony pelvis is intact. IMPRESSION: No evidence of renal stone or obstruction. Normal appendix. Borderline hepatomegaly. Small amount of fluid in the pelvis is likely physiologic.
[2021-11-09] MEDS ORDERED: KETOROLAC 15 MG/ML 1 ML VIAL IM STA (01:15)
--- NOTE | 2021-11-09 01:15 | ED ---
Abdominal Pain HPI - General Chief Complaint: Abdominal Pain Stated Complaint: NVD Time Seen by Provider: 11/08/21 22:22 Source: patient, EMS Mode of arrival: EMS Limitations: no limitations - History of Present Illness Initial Comments: Patient is a 21-year-old female who presents to the emergency department with a chief complaint of nausea and vomiting. Patient states symptoms started one hour ago. Patient states she has vomited about 10 times, nonbloody. Patient also experienced one episode of diarrhea with questionable blood and abdominal pain in the left lower quadrant. Patient states that both of these symptoms have been occurring intermittently for the past month. She states her episodes of diarrhea occur approximately 2 times a week. The diarrhea has hints of red in it and is sometimes orange. Patient states her primary care provider tested her stool for blood but she is waiting on results. Patient denies history of anemia, GI bleed, hemorrhoids, diverticulitis, and kidney stone. She does report history of ovarian cysts. Patient has no other concerns at this time including fever, chills, shortness of breath, chest pain, lightheadedness, burning with urination, and blood in urine. Patient has no concern for . - Related Data Home Medications Medication Instructions Recorded Confirmed Adapalene/Benzoyl Peroxide [Epiduo 1 applic TOPICAL DAILY 07/07/16 03/31/19 0.1-2.5% Gel] Atomoxetine HCl [Strattera] 40 mg PO QAM 07/07/16 03/31/19 Clindamycin Gel [Cleocin-T Gel] 1 applic TOPICAL DAILY 07/07/16 03/31/19 Glytone Acne [place] 1 spray TOPICAL DAILY 07/07/16 03/31/19 Loratadine [Claritin] 10 mg PO QAM 07/07/16 03/31/19 Metaxalone [Metaxall] 800 mg PO DAILY PRN 07/07/16 03/31/19 Montelukast [Singulair] 10 mg PO HS 07/07/16 03/31/19 Plexion Wash 1 applic TOPICAL DAILY 07/07/16 03/31/19 cloNIDine HCL [Catapres] 0.1 mg PO HS 07/07/16 03/31/19 Albuterol Inhaler (Mhu) [Ventolin 2 puff INHALATION RT-Q6H PRN 03/31/19 03/31/19 Hfa Inhaler] Blisovi Fe 1 tab PO DAILY 03/31/19 03/31/19 Fluticasone Nasal [place] [Flonase 1 spray EA NOSTRIL DAILY PRN 03/31/19 03/31/19 Nasal [place]] Fluticasone/Vilanterol [Breo 1 puff INHALATION RT-DAILY 03/31/19 03/31/19 Ellipta 100-25 Mcg Inhaler] Previous Rx's Medication Instructions Recorded Ondansetron Odt [Zofran ODT] 4 mg PO Q8HR PRN #10 tab 08/23/19 Allergies Allergy/AdvReac Type Severity Reaction Status Date / Time Penicillins Allergy Unknown Verified 05/13/21 00:29 Childhood Review of Systems ROS Statement: Those systems with pertinent positive or pertinent negative responses have been documented in the HPI. ROS Other: All systems not noted in ROS Statement are negative. Past Medical History Past Medical History: Asthma Additional Past Medical History / Comment(s): SESONAL ALLERGIES, cerebral atoxia at History of Any Multi-Drug Resistant Organisms: None Reported Past Surgical History: No Surgical Hx Reported Additional Past Surgical History / Comment(s): wisdom teeth removal Past Psychological History: ADD/ADHD, Anxiety Smoking Status: Never smoker Past Alcohol Use History: Occasional Past Drug Use History: Marijuana General Exam Limitations: no limitations General appearance: alert, in no apparent distress Head exam: Present: atraumatic, normocephalic, normal inspection Eye exam: Present: normal appearance, PERRL, EOMI. Absent: scleral icterus, conjunctival injection, periorbital swelling Respiratory exam: Present: normal lung sounds bilaterally. Absent: respiratory distress, wheezes, rales, rhonchi, stridor Cardiovascular Exam: Present: regular rate, normal rhythm, normal heart sounds. Absent: systolic murmur, diastolic murmur, rubs, gallop, clicks GI/Abdominal exam: Present: soft, tenderness (Mild in left lower quadrant), normal bowel sounds. Absent: distended, guarding, rebound, rigid Back exam: Present: normal inspection, full ROM. Absent: tenderness, CVA tenderness (R), CVA tenderness (L) Neurological exam: Present: alert, oriented X3, CN II-XII intact Psychiatric exam: Present: normal affect, normal mood Skin exam: Present: warm, dry, intact, normal color. Absent: rash Course Vital Signs 11/08/21 11/09/21 22:22 01:31 Temperature 97.8 F 97.6 F Pulse Rate 88 78 Respiratory 22 22 Rate Blood Pressure 132/80 127/77 O2 Sat by Pulse 99 97 Oximetry Medical Decision Making - Medical Decision Making This is a 21-year-old female who presents with complaint of nausea nausea and vomiting x 1 hour. Thorough history and examination were performed. Patient has intermittent left lower quadrant abdominal pain and diarrhea for about 1 month with concern for blood in the stool. She is hemodynamically stable and afebrile. The abdomen is soft and mildly tender in the left lower quadrant. There is no gross bleeding observed on rectal exam. Hemoccult is positive. Hemoglobin is elevated at 17.2, with baseline around 16.3. White count is normal at 9.1. Urinalysis shows moderate calcium oxalate crystals and 7 RBCs. With left lower quadrant pain, nausea, and vomiting, ovarian torsion and kidney stone are on my differential. Doppler ultrasound is negative for torsion and other abnormalities. Because patient had concern for blood in stool and positive Hemoccult I did order CT of the abdomen and pelvis both with and without contrast to evaluate for colitis and rule out kidney stone which was unremarkable. Patient was given Zofran in the ambulance with no improvement in nausea so Compazine was given. Patient was also given a large fluid bolus. She declines pain medications initially. On reevaluation patient reports her nausea has improved and now seeks pain medication. Toradol was given. Results discussed with patient. At this time there is no diagnostic testing to explain patient's symptoms. Patient will need further evaluation with GI specialist. With stable hemoglobin patient is safe to go home with GI specialist follow-up outpatient. She will be referred. She is instructed to follow-up with her primary care pro vider on Thursday for repeat urinalysis. She is encouraged to take Motrin or Advil for pain. Patient states she already has Zofran at home which she would like to continue taking for nausea. Return parameters discussed. Patient verbalizes understanding and is agreeable with plan. Dr. Ayala is my attending. - Lab Data Result diagrams: 11/08/21 22:48 11/08/21 22:48 Lab Results 11/08/21 11/08/21 11/08/21 Range/Units 22:48 22:48 22:48 WBC 9.1 (3.8-10.6) k/uL RBC 5.50 H (3.80-5.40) m/uL Hgb 17.2 H (11.4-16.0) gm/dL Hct 50.4 H (34.0-46.0) % MCV 91.5 (80.0-100.0) fL MCH 31.2 (25.0-35.0) pg MCHC 34.1 (31.0-37.0) g/dL RDW 12.1 (11.5-15.5) % Plt Count 229 (150-450) k/uL MPV 9.3 Neutrophils % 65 % Lymphocytes % 26 % Monocytes % 6 % Eosinophils % 1 % Basophils % 1 % Neutrophils # 5.9 (1.3-7.7) k/uL Lymphocytes # 2.4 (1.0-4.8) k/uL Monocytes # 0.6 (0-1.0) k/uL Eosinophils # 0.1 (0-0.7) k/uL Basophils # 0.1 (0-0.2) k/uL Sodium (137-145) mmol/L Potassium (3.5-5.1) mmol/L Chloride (98-107) mmol/L Carbon Dioxide (22-30) mmol/L Anion Gap mmol/L BUN (7-17) mg/dL Creatinine (0.52-1.04) mg/dL Est GFR (CKD-EPI)AfAm (>60 ml/min/1.73 sqM) Est GFR (CKD-EPI)NonAf (>60 ml/min/1.73 sqM) Glucose (74-99) mg/dL Calcium (8.4-10.2) mg/dL Total Bilirubin (0.2-1.3) mg/dL AST (14-36) U/L ALT (4-34) U/L Alkaline Phosphatase (38-126) U/L Total Protein (6.3-8.2) g/dL Albumin (3.5-5.0) g/dL Lipase (23-300) U/L Urine Color Yellow Urine Appearance Cloudy H (Clear) Urine pH 5.0 (5.0-8.0) Ur Specific [place] 1.031 (1.001-1.035) Urine Protein 1+ H (Negative) Urine Glucose (UA) Negative (Negative) Urine Ketones Trace H (Negative) Urine Blood Moderate H (Negative) Urine Nitrite Negative (Negative) Urine Bilirubin Negative (Negative) Urine Urobilinogen 3.0 (<2.0) mg/dL Ur Leukocyte Esterase Small H (Negative) Urine RBC 7 H (0-5) /hpf Urine WBC 35 H (0-5) /hpf Ur Squamous Epith Cells 5 H (0-4) /hpf Calcium Oxalate Crystal Moderate H (None) /hpf Hyaline Casts 28 H (0-2) /lpf Urine Mucus Many H (None) /hpf Urine HCG, Qual Not Detected (Not Detectd) Stool Occult Blood (Negative) 11/08/21 11/08/21 Range/Units 22:48 22:48 WBC (3.8-10.6) k/uL RBC (3.80-5.40) m/uL Hgb (11.4-16.0) gm/dL Hct (34.0-46.0) % MCV (80.0-100.0) fL MCH (25.0-35.0) pg MCHC (31.0-37.0) g/dL RDW (11.5-15.5) % Plt Count (150-450) k/uL MPV Neutrophils % % Lymphocytes % % Monocytes % % Eosinophils % % Basophils % % Neutrophils # (1.3-7.7) k/uL Lymphocytes # (1.0-4.8) k/uL Monocytes # (0-1.0) k/uL Eosinophils # (0-0.7) k/uL Basophils # (0-0.2) k/uL Sodium 140 (137-145) mmol/L Potassium 4.4 (3.5-5.1) mmol/L Chloride 103 (98-107) mmol/L Carbon Dioxide 27 (22-30) mmol/L Anion Gap 10 mmol/L BUN 14 (7-17) mg/dL Creatinine 0.77 (0.52-1.04) mg/dL Est GFR (CKD-EPI)AfAm >90 (>60 ml/min/1.73 sqM) Est GFR (CKD-EPI)NonAf >90 (>60 ml/min/1.73 sqM) Glucose 98 (74-99) mg/dL Calcium 8.9 (8.4-10.2) mg/dL Total Bilirubin 0.5 (0.2-1.3) mg/dL AST 37 H (14-36) U/L ALT 26 (4-34) U/L Alkaline Phosphatase 53 (38-126) U/L Total Protein 8.0 (6.3-8.2) g/dL Albumin 4.8 (3.5-5.0) g/dL Lipase 58 (23-300) U/L Urine Color Urine Appearance (Clear) Urine pH (5.0-8.0) Ur Specific [place] (1.001-1.035) Urine Protein (Negative) Urine Glucose (UA) (Negative) Urine Ketones (Negative) Urine Blood (Negative) Urine Nitrite (Negative) Urine Bilirubin (Negative) Urine Urobilinogen (<2.0) mg/dL Ur Leukocyte Esterase (Negative) Urine RBC (0-5) /hpf Urine WBC (0-5) /hpf Ur Squamous Epith Cells (0-4) /hpf Calcium Oxalate Crystal (None) /hpf Hyaline Casts (0-2) /lpf Urine Mucus (None) /hpf Urine HCG, Qual (Not Detectd) Stool Occult Blood Positive H (Negative) Disposition Clinical Impression: LLQ abdominal pain, Nausea and vomiting, Diarrhea, Blood in stool Disposition: HOME SELF-CARE Condition: Good Instructions (If sedation given, give patient instructions): Abdominal Pain (ED) Additional Instructions: Please take Motrin or Advil as needed for pain. You may take your already prescribed Zofran for nausea. Follow up with GI specialist for further evalu ation of the blood found in stool. Follow-up with her primary care provider for repeat urinalysis in 1-2 days. Return to the emergency department if you experience new, concerning, or worsening symptoms. Is patient prescribed a controlled substance at d/c from ED?: No Referrals: Magaly Last DO [Primary Care Provider] - 1-2 days Nena Rai MD [STAFF PHYSICIAN] - 1-2 days Decision Time: 01:17
[2021-11-09 01:32] VITALS: BP 127/77; PULSE 78; TEMP 97.6
== END 2021-11-09 01:32 | disposition home or self-care (01) ==
LOC: EC 22:19
DX: K92.1 Melena (principal); R11.2 Nausea with vomiting, unspecified; R19.7 Diarrhea, unspecified; R10.32 Left lower quadrant pain; J45.909 Unspecified asthma, uncomplicated; F12.90 Cannabis use, unspecified, uncomplicated; Z79.51 Long term (current) use of inhaled steroids; Z79.899 Other long term (current) drug therapy
CPT/HCPCS: 36415; 80053; 83690; 85025; 82272; 81001; 81025; 87086; 76830; 99284; 96374; 96375; 96372; 96361; J0780; 74177; 93975

== ENCOUNTER 2022-01-03 07:26 | Day surgery (SDC) | payer OTHER ==
[2022-01-01 12:15] VITALS: BMI 25.7
[~2022-01-03 07:26] MED LIST: LIDOCAINE 1% (10MG/ML) FOR IV START INTRADERMA PRN
[2022-01-03 07:49] VITALS: RESP 16; TEMP 98.5
[2022-01-03] MEDS: LACTATED RINGERS 1,000 ML IV SCH ×2 (08:04→08:33)
[2022-01-03] MEDS ORDERED: LIDOCAINE 2% INJ 20 MG/ML (2 ML VIAL) ONE (08:35)
[2022-01-03] MEDS ORDERED: PROPOFOL 10 MG/ML 20 ML VIAL IV ONE (08:35)
--- NOTE | 2022-01-03 08:56 | P.PCN ---
Date of Procedure: 01/03/22 Procedure(s) Performed: Brief history: Patient is a pleasant 21-year-old white female scheduled for an elective upper endoscopy as well as colonoscopy as a part of evaluation of intermittent episodes of nausea vomiting, diarrhea and rectal bleeding for the last several months duration. Procedure performed: Esophagogastroduodenoscopy with biopsy Colonoscopy with random biopsies Preoperative diagnosis: Intermittent episodes of nausea vomiting and diarrhea Rectal bleeding Anesthesia: MAC Procedure: After informed consent was obtained from the patient was brought into the endoscopy unit and IV sedation was administered by anesthesia under continuous monitoring. Initially upper endoscopy was done. The Olympus GF 160 video endoscope was inserted inserted into the mouth and esophagus intubated without any difficulty and was gradually advanced into the stomach and duodenum and carefully examined. The bulb and second part of the duodenum appeared normal. The scope was then withdrawn into the stomach adequately insufflated with air and upon careful examination the antrum had mild gastritis and biopsies were done from this area. The body, cardia and fundus appeared normal. The scope was then withdrawn into the esophagus. The GE junction was located at 40 cm to the incisors. There was circumferential erythema the GE junction consistent with LA grade a reflux esophagitis. Rest of the esophagus appeared normal. Patient tolerated the procedure well. At this time the patient continued to remain sedation. Initial digital rectal examination was normal. Olympus CF 160 video colonoscope was then inserted into the rectum and gradually advanced to the cecum without any difficulty. Careful examination was performed as the scope was gradually being withdrawn. The prep was excellent. Terminal ileum was intubated and 20 cm visualized and appeared normal. The cecum, ascending colon, transverse colon, descending colon, sigmoid colon and rectum appeared normal. Biopsies were done from ascending and descending colon to rule out metastatic/collagenous colitis. Retroflexion was performed in the rectum and small internal hemorrhoids were noted. Patient tolerated the procedure well. Impression: 1. Upper endoscopy revealed mild antral gastritis and LA grade A reflux esophagitis 2. Colonoscopy was within normal limits with no evidence of colorectal neoplasia was small internal hemorrhoids seen Recommendations: Findings of this examination were discussed with the patient as well as her family. She was advised to follow with the biopsy results. She will continue with omeprazole 20 mg daily and follow antireflux measures
[2022-01-03 09:03] VITALS: BP 103/68; PULSE 82
== END 2022-01-03 09:37 | disposition home or self-care (01) ==
LOC: ORWHC2ENDO 07:26
PROVIDERS: ATTEND Internal Medicine Gastroenterology
DX: K21.01 Gastro-esophageal reflux disease with esophagitis, with bleeding (principal); K29.50 Unspecified chronic gastritis without bleeding; K64.8 Other hemorrhoids; J45.909 Unspecified asthma, uncomplicated; Z79.899 Other long term (current) drug therapy; Z87.891 Personal history of nicotine dependence; Z88.0 Allergy status to penicillin
CPT/HCPCS: 81025; 88305; 45380; 43239; J2704; J2001

== ENCOUNTER → 2022-12-08 | Outpatient (CLI) | payer OTHER ==
--- NOTE | 2022-12-08 10:14 | XR ---
EXAMINATION TYPE: XR hand complete RT DATE OF EXAM: 12/08/2022 CLINICAL HISTORY: pain TECHNIQUE: Frontal, lateral and oblique images of the right hand are obtained. COMPARISON: None. FINDINGS: There is no acute fracture/dislocation evident. The joint spaces appear within normal limi ts. The overlying soft tissue appears unremarkable. IMPRESSION: There is no acute fracture or dislocation ICD 10 NO FRACTURE, INITIAL EVALUATION
== END | disposition home or self-care (01) ==
LOC: RADXRMAIN 09:41
PROVIDERS: ATTEND Emergency Medicine
DX: S60.221A Contusion of right hand, initial encounter (principal)

== ENCOUNTER 2023-01-23 07:15 | Emergency (ER) | payer OTHER ==
[2023-01-23 07:21] VITALS: RESP 18
[2023-01-23] MEDS ORDERED: methylPREDNISolone SOD SUCCI 125 MG/2 ML VIAL IV STA (07:34)
[2023-01-23] MEDS ORDERED: diphenhydrAMINE 50 MG/ML 1 ML VIAL IVP STA (07:34)
--- NOTE | 2023-01-23 07:41 | ED ---
Allergic Reaction HPI - General Chief complaint: Allergic Reaction Stated complaint: Allergic Reaction Time Seen by Provider: 01/23/23 07:23 Source: patient, RN notes reviewed Mode of arrival: ambulatory Limitations: no limitations - History of Present Illness Initial Comments: This is a 22-year-old female who presents to the emergency department for con cerns of an allergic reaction. States that she was started on Macrobid yesterday for a UTI. She took one dose of this, when she woke up states that she was covered in a rash. She has had itching and burning to her arms, torso and legs. Unsure if she has ever been on Macrobid before. She took one dose of Benadryl with no relief in symptoms. Denies any history of similar symptoms in the past, states that she has an allergy to penicillin, but does not remember what happened when she took it. She is concerned because she has asthma, and feels like she might be starting to have difficulty breathing. Does continue to have burning with urination and pain in the suprapubic and lower back areas. Denies any fevers, chills, sore throat, cough, chest pain, palpitations, nausea, vomiting, diarrhea, or headaches. MD Complaint: allergic reaction Symptoms: rash Treatment Prior to Arrival: benadryl - Related Data Home Medications Medication Instructions Recorded Confirmed Loratadine [Claritin] 10 mg PO QAM 07/07/16 01/03/22 Montelukast [Singulair] 10 mg PO DAILY 07/07/16 01/03/22 Albuterol Inhaler [Ventolin Hfa 2 puff INHALATION BID PRN 03/31/19 01/03/22 Inhaler] Fluticasone Nasal [place] [Flonase 1 spray EA NOSTRIL DAILY PRN 03/31/19 01/03/22 Nasal [place]] Amitriptyline HCl [Elavil] 25 mg PO HS 01/01/22 01/03/22 Famotidine [Pepcid] 20 mg PO DAILY PRN 01/01/22 01/03/22 lamoTRIgine [LaMICtal Xr] 50 mg PO HS 01/01/22 01/03/22 norethindrone-e.estradioL-iron 1 each PO 2100 01/01/22 01/03/22 [Microgestin Fe 1.5-30 Tab] Previous Rx's Medication Instructions Recorded cefUROXime axetiL [Ceftin] 500 mg PO BID 7 Days #14 tab 01/23/23 predniSONE 50 mg PO DAILY 5 Days #5 tab 01/23/23 Allergies Allergy/AdvReac Type Severity Reaction Status Date / Time nitrofurantoin Allergy Rash/Hives Verified 01/23/23 07:35 [From Macrobid] Penicillins Allergy Unknown Verified 01/23/23 07:21 Childhood Review of Systems ROS Statement: Those systems with pertinent positive or pertinent negative responses have been documented in the HPI. ROS Other: All systems not noted in ROS Statement are negative. Past Medical History Past Medical History: Asthma Additional Past Medical History / Comment(s): SESONAL ALLERGIES, cerebral atoxia at History of Any Multi-Drug Resistant Organisms: None Reported Past Surgical History: No Surgical Hx Reported Additional Past Surgical History / Comment(s): wisdom teeth removal Past Psychological History: ADD/ADHD, Anxiety Smoking Status: Never smoker Past Alcohol Use History: Occasional Past Drug Use History: Marijuana General Exam Limitations: no limitations General appearance: alert, in no apparent distress Head exam: Present: atraumatic, normocephalic, normal inspection Respiratory exam: Present: normal lung sounds bilaterally. Absent: respiratory distress, wheezes, rales, rhonchi, stridor Cardiovascular Exam: Present: regular rate, normal rhythm, normal heart sounds. Absent: systolic murmur, diastolic murmur, rubs, gallop, clicks Neurological exam: Present: alert, oriented X3, CN II-XII intact Psychiatric exam: Present: normal affect, normal mood Skin exam: Present: other (Urticaria to the bilateral upper extremities and trunk. Positive dermatographism.) Course Vital Signs 01/23/23 07:17 Temperature 97 F L Pulse Rate 113 H Respiratory 18 Rate Blood Pressure 114/80 O2 Sat by Pulse 98 Oximetry Medical Decision Making - Medical Decision Making This is a 22-year-old female who presents to the emergency department for concerns of a rash. Was pt. sent in by a medical professional or institution? @ -No Did you speak to anyone other than the patient for history? @ -No Did you review nursing and triage notes? @ -Yes, and I agree, it is accurate with regards to the patient's symptoms. Were old charts reviewed? @ -No Differential Diagnosis? @ -Differential Rash: Roseola, measles, Lyme disease, erythema multiforme, cellulitis, toxic shock syndrome, Amadou Julio syndrome, Kawasaki disease, rahul mountain spotted fever, contact dermatitis, allergic dermatitis, measles, mumps, rubella, varicella, meningococcal disease, drug reaction, coxsackievirus, This is not meant to be an all-inclusive list. EKG interpreted by me (3pts min.)? @ -Not obtained X-rays interpreted by me (1pt min.)? @ -Not obtained CT interpreted by me (1pt min.)? @ -Not obtained U/S interpreted by me (1pt. min.)? @ -Not obtained What testing was considered but not performed? (CT, X-rays, U/S, labs)? Why? @ -None What meds were considered but not given? Why? @ -None Did you discuss the management of the patient with other professionals? @ -No Did you reconcile home meds? @ -No Was smoking cessation discussed for >3mins.? @ -No Was critical care preformed (if so, how long)? @ -No Were there social determinants of health that impacted care today? How? (Homelessness, low income, unemployed, alcoholism, drug addiction, transportation, low edu. Level, literacy, decrease access to med. care, long term, rehab)? @ -No Was there de-escalation of care discussed even if they declined? (Discuss DNR or withdrawal of care, Hospice)? @ -No What co-morbidities impacted this encounter? (DM, HTN, Smoking, COPD, CAD, Cancer, CVA, Hep., AIDS, mental health diagnosis, sleep apnea, morbid obesity)? @ -Asthma Was patient admitted / discharged? @ -Discharged. Physical examination and does reveal diffuse urticaria. Urinalysis is fairly contaminated, however there are large amount of white blood cells and leukoesterase. She was given IV Solu-Medrol, Pepcid, and Benadryl with improvement in symptoms. Macrobid was added to her allergy list. Given that she was being treated for a UTI, we will switch her Macrobid to cefuroxime. Prescriptions for an additional 5 days of prednisone as well as cefuroxime for the UTI provided. She is instructed to stop taking the Macrobid and to start taking the cefuroxime. She is also instructed to continue taking the Benadryl with the prednisone and to follow up with her PCP for reevaluation. Undiagnosed new problem with uncertain prognosis? @ -None Drug Therapy requiring intensive monitoring for toxicity (Heparin, Nitro, Insulin, Cardizem)? @ -None Were any procedures done? @ -None Diagnosis/symptom? @ -Allergic reaction to drug, urticaria Acute, or Chronic, or Acute on Chronic? @ -Acute Uncomplicated (without systemic symptoms) or Complicated (systemic symptoms)? @ -Uncomplicated Side effects of treatment? @ -None Exacerbation, Progression, or Severe Exacerbation] @ -Not applicable Poses a threat to life or bodily function? @ -No Return precautions reviewed in depth, the patient is instructed to return to the emergency department with any new, worsening, or concerning symptoms. Patient verbalized understanding. This case was discussed in detail with the attending ED physician, Dr. Ayala. Presentation, findings, and treatment plan discussed in detail as well. - Lab Data Lab Results 01/23/23 01/23/23 Range/Units 08:01 08:01 Urine Color Dark Brown Urine Appearance Cloudy H (Clear) Urine pH 6.0 (5.0-8.0) Ur Specific [place] 1.025 (1.001-1.035) Urine Protein 1+ H (Negative) Urine Glucose (UA) Negative (Negative) Urine Ketones Negative (Negative) Urine Blood Trace H (Negative) Urine Nitrite Negative (Negative) Urine Bilirubin Negative (Negative) Urine Urobilinogen <2.0 (<2.0) mg/dL Ur Leukocyte Esterase Moderate H (Negative) Urine RBC 16 H (0-5) /hpf Urine WBC 111 H (0-5) /hpf Ur Squamous Epith Cells 7 H (0-4) /hpf Urine Bacteria Rare H (None) /hpf Urine Mucus Many H (None) /hpf Urine HCG, Qual Not Detected (Not Detectd) Disposition Clinical Impression: Allergic reaction to drug, UTI (urinary tract infection) Disposition: HOME SELF-CARE Instructions (If sedation given, give patient instructions): Urinary Tract Infection in Women (ED), Urticaria (ED) Additional Instructions: Return to the emergency department with any new, worsening, or concerning symptoms. Stop taking the Macrobid. Start taking cefuroxime as prescribed for 7 days. Take the prednisone daily for 5 days. Take this along with Benadryl for management of the rash. Follow up with your primary care provider in 1-2 days. Prescriptions: cefUROXime axetiL [Ceftin] 500 mg PO BID 7 Days #14 tab predniSONE 50 mg PO DAILY 5 Days #5 tab Is patient prescribed a controlled substance at d/c from ED?: No Referrals: Magaly Last DO [Primary Care Provider] - 1-2 days
[2023-01-23 08:53] LABS: Appearance,Urine Cloudy (Clear); Bacteria,Urine Rare /hpf; Bilirubin,Urine Negative (Negative); Blood,Urine Trace (Negative); Color,Urine Dark Brown; Glucose,Urine (UA) Negative (Negative); Ketones,Urine Negative (Negative); Leukocyte Esterase,Urine Moderate (Negative); Mucus,Urine Many /hpf; Nitrite,Urine Negative (Negative); Protein,Urine 1+ (Negative); RBC,Urine 16 /hpf (0-5); Specific Gravity,Urine 1.025 (1.001-1.035); Squamous Epithelial Cell,Urine 7 /hpf (0-4); Urobilinogen,Urine <2.0 mg/dL (<2.0); WBC,Urine 111 /hpf (0-5)
[2023-01-23] MEDS ORDERED: FAMOTIDINE 20 MG/2 ML VIAL IV SCH (09:00)
[2023-01-23 09:32] VITALS: BP 108/65; PULSE 91; TEMP 98.1
== END 2023-01-23 09:32 | disposition home or self-care (01) ==
LOC: EC 07:15
DX: N39.0 Urinary tract infection, site not specified (principal); L50.9 Urticaria, unspecified; T37.8X5A Adverse effect of other specified systemic anti-infectives and antiparasitics, initial encounter; J45.909 Unspecified asthma, uncomplicated; F41.9 Anxiety disorder, unspecified; F12.90 Cannabis use, unspecified, uncomplicated; Z79.51 Long term (current) use of inhaled steroids; Z79.899 Other long term (current) drug therapy; Z88.0 Allergy status to penicillin; Z88.8 Allergy status to other drugs, medicaments and biological substances
CPT/HCPCS: 81001; 81025; 87086; 99283; 96374; 96375 ×2; J1200; J2930

== ENCOUNTER → 2023-02-23 | Outpatient (CLI) | payer OTHER ==
--- NOTE | 2023-02-24 18:01 | CT ---
EXAMINATION TYPE: CT urogram wo/w con DATE OF EXAM: 02/23/2023 COMPARISON: 11/09/2021 HISTORY: Dysuria, reoccurring UTI CT DLP: 1188.3 mGycm Automated exposure control for dose reduction was used. Contrast: 100 mL Isovue-300 Technique: Axial images 3 mm thick sections. Reconstructed images coronal plane. Three-D reconstructe d images through the renal collecting systems performing technologist. Study is performed pre and pos tcontrast. FINDINGS: Limited CT sections are obtained through the lung bases which are clear CT ABDOMEN: Liver and spleen of normal density without discrete masses or cysts. The adrenal glands a re normal. Pancreas normal. Gallbladder is unremarkable. Loops of bowel without oral contrast. There are a few diverticula present. CT PELVIS: Urinary bladder is normal. Uterus is normal. Adnexa are unremarkable. The appendix is not identified. No dilated tubular structure or inflammatory changes evident. Abdominal aorta and inferio r vena cava are unremarkable. Kidneys: No renal stones are evident. No hydronephrosis is evident. No masses or cysts are evident. D elayed images remain unremarkable. Renal calyces infundibula and renal pelves appear normal. No filling defects within the renal collect ing system are evident. Ureters follow a normal caliber course and contour to the urinary bladder. Th e distal right ureter is not identified on the initial reconstructed images but was visualized on the delayed images. Urinary bladder fills normally without intraluminal filling defects. IMPRESSION: 1. UNREMARKABLE CT UROGRAM.
== END | disposition home or self-care (01) ==
LOC: RADCTMAIN 10:07
PROVIDERS: ATTEND Family Medicine
DX: N39.0 Urinary tract infection, site not specified (principal); R30.0 Dysuria
CPT/HCPCS: 74178; 74400; Q9967

== ENCOUNTER → 2024-06-08 | Outpatient (CLI) | payer OTHER ==
--- NOTE | 2024-06-08 11:52 | XR ---
EXAMINATION TYPE: XR knee complete LT DATE OF EXAM: 06/08/2024 10:12 AM COMPARISON: 12/07/2023 CLINICAL INDICATION: Female, 24 years old with history of S83.92XA SPRAIN OF UNSPECIFIED SITE OF LEFT KNEE,; [facility] TECHNIQUE: XR knee complete LT 3 views submitted. FINDINGS: No evidence of any acute osseous pathology, soft tissue swelling, or joint effusion is no dex. IMPRESSION: No acute osseous pathology. [facility], , 06/08/2024 11:50 AM
== END | disposition home or self-care (01) ==
LOC: RADXRMAIN 09:33
PROVIDERS: ATTEND Emergency Medicine
DX: S83.92XA Sprain of unspecified site of left knee, initial encounter (principal); X58.XXXA Exposure to other specified factors, initial encounter

== ENCOUNTER 2024-11-03 16:27 | Emergency (ER) | payer OTHER ==
[2024-11-03 16:32] VITALS: BP 135/89; PULSE 83; TEMP 98
--- NOTE | 2024-11-03 16:52 | ED ---
General Adult HPI - General Chief complaint: Shortness of Breath Stated complaint: [facility]-chemical exposure Time Seen by Provider: 11/03/24 16:33 Source: patient, RN notes reviewed, old records reviewed Mode of arrival: ambulatory Limitations: no limitations - History of Present Illness Initial comments: 24-year-old female history of asthma presents after chemical exposure. Patient was cleaning a toilet, did not know that her colleague had placed bleach in the toilet and she subsequently put in a low acid toilet bowl machine cleaner. She experienced some noxious fumes. This occurred 6 hours prior to arrival. Patient reporting mild dyspnea. - Related Data Home Medications Medication Instructions Recorded Confirmed Loratadine [Claritin] 10 mg PO QAM 07/07/16 01/03/22 Montelukast [Singulair] 10 mg PO DAILY 07/07/16 01/03/22 Albuterol Inhaler [Ventolin Hfa 2 puff INHALATION BID PRN 03/31/19 01/03/22 Inhaler] Fluticasone Nasal [place] [Flonase 1 spray EA NOSTRIL DAILY PRN 03/31/19 01/03/22 Nasal [place]] Amitriptyline HCl [Elavil] 25 mg PO HS 01/01/22 01/03/22 Famotidine [Pepcid] 20 mg PO DAILY PRN 01/01/22 01/03/22 lamoTRIgine [LaMICtal Xr] 50 mg PO HS 01/01/22 01/03/22 norethindrone-e.estradioL-iron 1 each PO 2100 01/01/22 01/03/22 [Microgestin Fe 1.5-30 Tab] Previous Rx's Medication Instructions Recorded cefuroxime axetiL [Ceftin] 500 mg PO BID 7 Days #14 tab 01/23/23 predniSONE 50 mg PO DAILY 5 Days #5 tab 01/23/23 Cyclobenzaprine [Flexeril] 10 mg PO TID PRN #15 tab 08/29/24 Albuterol Inhaler [Ventolin Hfa 1 - 2 puff INHALATION Q4HR PRN #1 11/03/24 Inhaler] each Allergies Allergy/AdvReac Type Severity Reaction Status Date / Time nitrofurantoin Allergy Rash/Hives Verified 11/03/24 16:32 [From Macrobid] Penicillins Allergy Unknown Verified 11/03/24 16:32 Childhood Review of Systems ROS Statement: Those systems with pertinent positive or pertinent negative responses have been documented in the HPI. ROS Other: All systems not noted in ROS Statement are negative. Past Medical History Past Medical History: Asthma Additional Past Medical History / Comment(s): SESONAL ALLERGIES, cerebral atoxia at History of Any Multi-Drug Resistant Organisms: None Reported Past Surgical History: No Surgical Hx Reported Additional Past Surgical History / Comment(s): wisdom teeth removal Past Psychological History: ADD/ADHD, Anxiety Smoking Status: Never smoker Past Alcohol Use History: Occasional Past Drug Use History: Marijuana General Exam Limitations: no limitations General appearance: alert, in no apparent distress Head exam: Present: atraumatic, normocephalic Eye exam: Present: normal appearance, PERRL ENT exam: Present: normal exam Neck exam: Present: normal inspection. Absent: tenderness, meningismus Respiratory exam: Present: normal lung sounds bilaterally. Absent: respiratory distress, wheezes, rales, rhonchi Cardiovascular Exam: Present: regular rate, normal rhythm GI/Abdominal exam: Present: soft. Absent: distended, tenderness, guarding Neurological exam: Present: alert, oriented X3 Psychiatric exam: Present: normal affect, normal mood Course Vital Signs 11/03/24 16:28 Temperature 98.0 F Pulse Rate 83 Respiratory 18 Rate Blood Pressure 135/89 O2 Sat by Pulse 98 Oximetry Medical Decision Making - Medical Decision Making Was pt. sent in by a medical professional or institution (Dr. PA, ANALYSIS MANAGER, urgent care, hospital, or [facility]...) When possible be specific @ -No Did you speak to anyone other than the patient for history (EMS, parent, family, police, friend...)? What history was obtained from this source @ -No Did you review nursing and triage notes (agree or disagree)? Why? @ -I reviewed and agree with nursing and triage notes Were old charts reviewed (outside hosp., previous admission, EMS record, old EKG, old radiological studies, urgent care reports/EKG's, [facility] records)? Report findings @ -No old charts were reviewed Differential Dyspnea: Coronary syndrome, arrhythmia, tamponade, asthma, COPD, pulmonary embolism, pneumonia, pneumothorax, pulmonary effusion, anaphylaxis, diabetic ketoacidosis, flailed chest, pulmonary contusion, diaphragmatic rupture, anemia, neuromuscular, this is not meant to be an all-inclusive list. EKG interpreted by me (3pts min.). @ -As above X-rays interpreted by me (1pt min.). @ -None done CT interpreted by me (1pt min.). @ -None done U/S interpreted by me (1pt. min.). @ -None done What testing was considered but not performed or refused? (CT, X-rays, U/S, labs)? Why? @ -None What meds were considered but not given or refused? Why? @ -None Did you discuss the management of the patient with other professionals (professionals i.e. DrSourav, PA, ANALYSIS MANAGER, lab, RT, psych nurse, social group worker, wire saw operator, teacher, head correction officer, director of casework services)? Give summary @ -No Was smoking cessation discussed for >3mins.? @ -No Was critical care preformed (if so, how long)? @ -No Were there social determinants of health that impacted care today? How? (Homelessness, low income, unemployed, alcoholism, drug addiction, transportation, low edu. Level, literacy, decrease access to med. care, [place] [facility], rehab)? @ -No Was there de-escalation of care discussed even if they declined (Discuss DNR or withdrawal of care, Hospice)? DNR status @ -No What co-morbidities impacted this encounter? (DM, HTN, Smoking, COPD, CAD, Cancer, CVA, ARF, Chemo, Hep., AIDS, mental health diagnosis, sleep apnea, morbid obesity)? Asthma Was patient admitted / discharged? Hospital course, mention meds given and route, prescriptions, significant lab abnormalities, going to OR and other pertinent info. @ -24-year-old female presenting after exposure to cleaning products, possible bleach and HCl. This was 6 hours prior. Lungs are clear to auscultation, no wheezing, no rhonchi, no respiratory distress. Patient is instructed on close monitoring to avoid these chemicals being mixed in the future and is prescribed an albuterol inhaler for respiratory symptoms. Undiagnosed new problem with uncertain prognosis? @ -No Drug Therapy requiring intensive monitoring for toxicity (Heparin, Nitro, Insulin, Cardizem)? @ -No Were any procedures done? @ -No Diagnosis/symptom? @Dyspnea secondary to chemical exposure Acute, or Chronic, or Acute on Chronic? @ -Acute Uncomplicated (without systemic symptoms) or Complicated (systemic symptoms)? @ -Default Side effects of treatment? @ -No Exacerbation, Progression, or Severe Exacerbation? @ -No Poses a threat to life or bodily function? How? (Chest pain, [place], [place], pneumonia, PE, COPD, DKA, ARF, appy, cholecystitis, CVA, Diverticulitis, Homicidal, Suicidal, threat to staff... and all critical care pts) @ -No Disposition Clinical Impression: Exposure to chemical inhalation Disposition: HOME SELF-CARE Condition: Fair Instructions (If sedation given, give patient instructions): Asthma (ED) Prescriptions: Albuterol Inhaler [Ventolin Hfa Inhaler] 1 - 2 puff INHALATION Q4HR PRN #1 each PRN Reason: Shortness Of Breath Is patient prescribed a controlled substance at d/c from ED?: No Referrals: Magaly Last DO [Primary Care Provider] - 1-2 days Time of Disposition: 16:52
[2024-11-03 17:06] VITALS: RESP 16
== END 2024-11-03 17:06 | disposition home or self-care (01) ==
LOC: EC 16:27
DX: Z77.098 Contact with and (suspected) exposure to other hazardous, chiefly nonmedicinal, chemicals (principal); J45.909 Unspecified asthma, uncomplicated; Z88.0 Allergy status to penicillin; Z88.1 Allergy status to other antibiotic agents
CPT/HCPCS: 99284

== ENCOUNTER → 2024-11-04 | Outpatient (CLI) | payer OTHER ==
--- NOTE | 2024-11-04 14:37 | XR ---
EXAMINATION TYPE: XR chest 2V DATE OF EXAM: 11/04/2024 2:33 PM COMPARISON: Chest radiographs from 10/19/2020 TECHNIQUE: XR chest 2V Frontal and lateral views of the chest. CLINICAL INDICATION:Female, 24 years old with history of J68.2 R06.02; FINDINGS: Lungs/Pleura: There is no evidence of pleural effusion, focal consolidation, or pneumothorax. Pulmonary vascularity: Unremarkable. Heart/mediastinum: Cardiomediastinal silhouette is unremarkable. Musculoskeletal: No acute osseous pathology. IMPRESSION: No acute cardiopulmonary disease/process. [facility], , 11/04/2024 2:35 PM
== END | disposition home or self-care (01) ==
LOC: RADXRMAIN 14:17
PROVIDERS: ATTEND Emergency Medicine
DX: J68.2 Upper respiratory inflammation due to chemicals, gases, fumes and vapors, not elsewhere classified (principal)
CPT/HCPCS: 71046